=== PATIENT | female | born 1995 | race Caucasian/White ===

== ENCOUNTER 2021-04-08 21:30 | Emergency (ER) | payer OTHER ==
[~2021-04-08] VITALS: Ht 170.2 cm; Wt 104.0 kg
[~2021-04-08 21:30] MED LIST: NORG1TAB6 PO
[2021-04-08 21:33] VITALS: BP 129/91
[2021-04-08 22:02] LABS: BILIRUBIN,URINE NEGATIVE (NEG); CLARITY,URINE CLEAR; COLOR,URINE YELLOW; NITRITE,URINE NEGATIVE (NEG); PH,URINE 6.5 (<5.0-8.0); PROTEIN,URINE NEGATIVE (NEG-TRACE); UROBILINOGEN,URINE 0.2 mg/dL (0.2 mg/dL)
--- NOTE | 2021-04-08 22:04 | PHYS DOC ---
Past Medical History Past Medical History: No Pertinent History Past Surgical History: No Surgical History Smoking Status: Never Smoker Alcohol Use: None General Adult EDM: Chief Complaint: GI PROBLEM HPI: HPI: Patient is a 25 year old 25-year-old female patient who presents to the ED today complaining of a food bolus sensation in her epigastric abdominal region that began today after she had a piece of steak this evening. Patient states she only took 1 bite of the steak and felt it is stuck in her lower chest region. Patient states she tried vomiting but the food bolus itself has not come up. Patient states this is a chronic situation since she was a young child. Food bolus get stuck in her chest or abdomen. She states she usually is able to vomit it out and symptoms go away. She states she has vomited everything but not the actual meat itself. She states she is currently trying to be and does not know if she is or not. She is on fertility treatments. Review of Systems: Review of Systems: Constitutional: Denies fever or chills. [] Eyes: Denies change in visual acuity. [] HENT: Denies nasal congestion or sore throat. [] Respiratory: Denies cough or shortness of breath. [] Cardiovascular: Denies chest pain or edema. [] GI: Reports sensation of food bolus in her epigastric abdomen with intentional vomiting, denies denies bloody stools or diarrhea. [] : Denies dysuria. [] Musculoskeletal: Denies back pain or joint pain. [] Integument: Denies rash. [] Neurologic: Denies headache, focal weakness or sensory changes. [] Psychiatric: Denies depression or anxiety. [] Heart Score: C/O Chest Pain: N/A Risk Factors: Risk Factors: DM, Current or recent (<one month) smoker, HTN, HLP, family history of CAD, obesity. Risk Scores: Score 0 - 3: 2.5% MACE over next 6 weeks - Discharge Home Score 4 - 6: 20.3% MACE over next 6 weeks - Admit for Clinical Observation Score 7 - 10: 72.7% MACE over next 6 weeks - Early Invasive Strategies Allergies: Allergies: Allergies Coded Allergies Type Severity Reaction Last Updated Verified No Known Drug Allergies 03/26/16 No Physical Exam: PE: Constitutional: Well developed, well nourished, no acute distress, non-toxic appearance. [] HENT: Normocephalic, atraumatic, bilateral external ears normal, oropharynx moist, no oral exudates, nose normal. [] Eyes: PERRLA, EOMI, conjunctiva normal, no discharge. [] Neck: Normal range of motion, no tenderness, supple, no stridor. [] Cardiovascular:Heart rate regular rhythm, no murmur [] Lungs & Thorax: Bilateral breath sounds clear to auscultation [] Abdomen: Bowel sounds normal, soft, no tenderness, no masses, no pulsatile mariama s. [] Skin: Warm, dry, no erythema, no rash. [] Back: No tenderness, no CVA tenderness. [] Extremities: No tenderness, no cyanosis, no clubbing, ROM intact, no edema. [] Neurologic: Alert and oriented X 3, normal motor function, normal sensory function, no focal deficits noted. [] Psychologic: Affect normal, judgement normal, mood normal. [] Current Patient Data: Vital Signs: Vital Signs Date Time Temp Pulse Resp B/P (MAP) Pulse Ox O2 Delivery O2 Flow Rate FiO2 04/08/21 21:33 98.3 91 18 129/91 (104) Room Air 98.3 EKG: EKG: [] Radiology/Procedures: Radiology/Procedures: []PROCEDURE: ABDOMEN LTD EXAM: ULTRASOUND ABDOMEN LIMITED CLINICAL HISTORY: Reason: epigastric pain, gall bladder limited / Spl. Instructions: / History: COMPARISON: None available. TECHNIQUE: Limited ultrasound examination of the right upper quadrant of the abdomen was performed. FINDINGS: Liver contour is normal. Hepatopedal flow noted within the portal vein. Gallbladder is mildly distended. No pericholecystic fluid or wall thickening. No gallstones. Right kidney measures 10.2 cm in length. No hydronephrosis. Common bile duct measures 3 mm in diameter. Visualized portions aorta and IVC are unremarkable IMPRESSION: 1. No sonographic evidence for acute cholecystitis. 2. No right-sided hydronephrosis. 3. Normal sonographic appearance the liver. Electronically signed by: Glenda Flores MD (04/08/2021 10:51 PM) [facility] DICTATED and SIGNED BY: GLENDA FLORES MD DATE: 04/08/21 [id number] 0 Course & Med Decision Making: Course & Med Decision Making Pertinent Labs and Imaging studies reviewed. (See chart for details) This is a 25-year-old female patient presented to the ED today complaining of a food bolus in her epigastric abdominal region after eating a piece of steak. This is a chronic condition for this patient. Currently tolerating her secretions well. Negative urine hCG. Given glucagon IM in the ED, feels better. Discharge to home. Follow-up with GI. [facility] Disclaimer: Sol[facility]ad Disclaimer: This electronic medical record was generated, in whole or in part, using a voice recognition dictation system. Departure Departure Impression: Primary Impression: Food impaction of esophagus Qualified Codes: T18.128A - Food in esophagus causing other injury, initial encounter Disposition: HOME / SELF CARE / HOMELESS Condition: STABLE Referrals: ARSENIO BOONE DO (PCP) DAPHNIE SWANSON MD follow up in one week Patient Instructions: Choking, Adult Additional Instructions: You were evaluated in the emergency room for food bolus. Please follow-up with the provided journeyman press operator. Please try and eat small amount of food bites and chew them thoroughly before swallowing. Try and double swallow your food. You can also tuck your chin while swallowing CHARY FIELDS APRN Apr 08, 2021 22:04
[2021-04-08 22:16] LABS: BACTERIA,URINE FEW /HPF (0-FEW); WBC,URINE RARE /HPF (0-4)
[2021-04-08] MEDS ORDERED: GLUCAGON,HUMAN RECOMBINANT 1 MG/ML VIAL. IM ONE (22:45)
--- NOTE | 2021-04-08 22:53 | RAD ---
EXAM: ULTRASOUND ABDOMEN LIMITED CLINICAL HISTORY: Reason: epigastric pain, gall bladder limited / Spl. Instructions: / History: COMPARISON: None available. TECHNIQUE: Limited ultrasound examination of the right upper quadrant of the abdomen was performed. FINDINGS: Liver contour is normal. Hepatopedal flow noted within the portal vein. Gallbladder is mildly distended. No pericholecystic fluid or wall thickening. No gallstones. Right kidney measures 10.2 cm in length. No hydronephrosis. Common bile duct measures 3 mm in diameter. Visualized portions aorta and IVC are unremarkable IMPRESSION: 1. No sonographic evidence for acute cholecystitis. 2. No right-sided hydronephrosis. 3. Normal sonographic appearance the liver. Electronically signed by: Glenda Durham MD (04/08/2021 10:51 PM) [facility]
== END 2021-04-09 00:17 | disposition home or self-care (01) ==
LOC: ER 21:30
DX: T18.128A Food in esophagus causing other injury, initial encounter (principal); X58.XXXA Exposure to other specified factors, initial encounter; Y93.89 Activity, other specified; Y92.89 Other specified places as the place of occurrence of the external cause; Y99.8 Other external cause status
CPT/HCPCS: 76705; 81001; 81025; 96372; 99284; J1610